=== PATIENT | male | born 1975 | race Hispanic/Latino ===

== ENCOUNTER 2018-07-26 08:15 | Emergency (ER) | payer OTHER ==
[~2018-07-26] VITALS: Ht 167.6 cm; Wt 122.5 kg
[2018-07-26] MEDS ORDERED: KETOROLAC TROMETHAMINE 60 MG/2 ML VIAL IM ONE (09:00)
--- NOTE | 2018-07-26 09:51 | Diagnostic Imaging Report ---
Examination: Chest and right rib radiographs COMPARISON: None. INDICATION: Status post fall 5 days ago, right rib pain DISCUSSION: Lung volumes are low with linear opacities in the lung bases, likely subsegmental atelectasis. No airspace consolidation, pleural effusion, or pneumothorax. Heart size is normal without overt pulmonary edema. No acute osseous abnormality. No displaced right rib fracture. IMPRESSION: No displaced right rib fracture or pneumothorax. Low lung volumes with subsegmental atelectasis in the lower lobes. Signed by: Dr. Osito Key M.D. on 07/26/2018 9:48 AM
== END 2018-07-26 11:40 | disposition home or self-care (01) ==
LOC: ER 08:15
DX: S20.211A Contusion of right front wall of thorax, initial encounter (principal); W18.30XA Fall on same level, unspecified, initial encounter; Y92.008 Other place in unspecified non-institutional (private) residence as the place of occurrence of the external cause; I10 Essential (primary) hypertension; M54.9 Dorsalgia, unspecified; G89.29 Other chronic pain
CPT/HCPCS: 71101; 99282; J1885